=== PATIENT | female | born 1945 | race Caucasian/White ===

== ENCOUNTER → 2017-09-08 | Outpatient (CLI) | payer MEDICARE, BC | LOC: COL.LAB 12:56 | DX: Z01.812 Encounter for preprocedural laboratory examination (principal) ==

== ENCOUNTER 2019-04-17 06:18 | Observation (INO) | payer MEDICARE, BC ==
[~2019-04-17] VITALS: Ht 165.1 cm; Wt 80.3 kg
[2019-04-17] VITALS (11 sets, daily range): BP systolic 131–162; BP diastolic 65–81; PULSE 55–89; TEMP 97–97.6
[2019-04-17] MEDS ORDERED: TYLENOL 500MG500 MG PO (08:59)
[2019-04-17] MEDS ORDERED: ASPIRIN 81M81 MG/TA2 PO (09:00)
[2019-04-17] MEDS ORDERED: VITAMIN C500 MG PO (09:00)
[2019-04-17] MEDS ORDERED: LIPITOR20 MG PO (09:01)
[2019-04-17] MEDS ORDERED: ZYRTEC 10MG10 MG PO (09:02)
[2019-04-17] MEDS ORDERED: VITAMIND3 5000 PO (09:07)
[2019-04-17] MEDS ORDERED: KLONOPIN 1MG1 MG PO (09:08)
[2019-04-17] MEDS ORDERED: HYZAAR 50-12.1 UDTAB PO (09:09)
[2019-04-17] MEDS ORDERED: SINGULAIR 110 MG/TAB PO (09:11)
[2019-04-17] MEDS ORDERED: TOPROL XL 50MG50 MG PO (09:11)
[2019-04-17] MEDS ORDERED: MULTI VITAMINS1 TAB PO (09:12)
[2019-04-17] MEDS ORDERED: MASON NATURAL1200 MG PO (09:13)
[2019-04-17] MEDS ORDERED: PLAVIX 75MG TAB75 MG PO (09:14)
[2019-04-17] MEDS ORDERED: TURMERIC500 MG PO (09:15)
[2019-04-17] MEDS ORDERED: VOLTAREN 75 DR75 MG PO (09:16)
[2019-04-17] MEDS ORDERED: PEPCID40 MG PO (09:18)
[2019-04-17] MEDS ORDERED: FLONASEALLERGY NS (09:20)
[2019-04-17] MEDS ORDERED: FOLIC ACID0.8 MG PO (09:21)
[2019-04-17] MEDS ORDERED: GLUCOSAMINE & C1 CA2 PO (09:22)
[2019-04-17] MEDS ORDERED: SYNTHROID0.125 MG/T PO (09:23)
[2019-04-17] MEDS ORDERED: TIROSINT125 MC1 PO (09:24)
--- NOTE | 2019-04-17 12:40 | NUR ---
PATIENT IS ORIENTED BUT VERY DROWSY. PATIENT FALLS BACK TO SLEEP WHEN NURSING IS TALKING TO PATIENT. ABDOMINAL LAP SITES X5 CD&I WITH SWIFTSET. BOWL SOUNDS PRESENT. NO C/O N/V. IV FLUIDS INFUSING VIA PUMP INTO RIGHT FORARM. LIQUIDS AT BEDSIDE. [place] TO DEPENDENT DRAINAGE WITH MOD AMOUNTS OF CLEAR YELLOW URINE NOTED. HEAD TO TOE ASSESSMENT WNL. AT BEDSIDE. CALL LIGHT IN REACH
--- NOTE | 2019-04-17 20:00 | NUR ---
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 Assessment complete. VS stable. Five LAP sites-edges well approximated-casillas set. Denies pain. Up to ambulate in [place] at this time. TOlerated wel-ambulated approx 150 feet. [place] with clear yellow urine. Denies questions or concerns. Call light within reach. Will monitor.
[2019-04-18 00:40] VITALS: BP 109/73; PULSE 78; TEMP 98.3
[2019-04-18 04:59] VITALS: BP 118/57; PULSE 65; TEMP 98
[2019-04-18 08:11] VITALS: BP 130/75; PULSE 84; TEMP 97.8
--- NOTE | 2019-04-18 09:19 | NUR ---
Patient sitting up in chair, eating breakfast. denies nausea. She also denies pain. Dr. Fonseca rounded this am. Orders obtained. Margie BLANCHARD, jeannette in [facility] [place] [facility] for I&O. Int to R.wrist. Abdomen soft, bowels audible. Robotic lap site edges well approximated. Will monitor
--- NOTE | 2019-04-18 10:44 | NUR ---
Initial visit; Patient thanked Pneumatic Tube Repairer for offering spiritual care; listening to patient speak of personal and family matters. She and Pneumatic Tube Repairer also spoke of the need to have a DNR status in place if we choose this direction. A DNR alleviates issues within the family when decisions need to be made concerning their loved one's care.
--- NOTE | 2019-04-18 10:55 | NUR ---
Patient up ambulated the halls with signficant other. she reports voiding, but missing hat. Iv dc per her request, she is wanting to get dressed for discharge. Once she voids, i will call for orders
[2019-04-18 12:00] VITALS: BP 121/81; PULSE 69; TEMP 98
--- NOTE | 2019-04-18 12:36 | NUR ---
notified of patient readiness to discharge. Orders obtained. Patient given all discharge teaching. Script for sennkot sent with patient. We reviewed home med list & last dose taken, patient aware to not start plavix until tmrw. She is aware of follow up appt. We reviewed activity & diet guidelines & discused incision care & signs & symptoms of when to call the doctor. Patient ambulated out with all belongings, her spouse taking her home. deny questions of concerns.
== END 2019-04-18 12:40 | disposition home or self-care (01) ==
LOC: SDCO 06:18 → SURG 10:26
PROVIDERS: ADMIT Urology
DX: N99.3 Prolapse of vaginal vault after hysterectomy (principal); N81.11 Cystocele, midline; Z85.850 Personal history of malignant neoplasm of thyroid; Z85.89 Personal history of malignant neoplasm of other organs and systems; I73.00 Raynaud's syndrome without gangrene; G47.33 Obstructive sleep apnea (adult) (pediatric); J45.909 Unspecified asthma, uncomplicated; I25.2 Old myocardial infarction; I11.0 Hypertensive heart disease with heart failure; I50.9 Heart failure, unspecified; Z85.828 Personal history of other malignant neoplasm of skin; R20.2 Paresthesia of skin; M79.7 Fibromyalgia; M19.90 Unspecified osteoarthritis, unspecified site; K21.9 Gastro-esophageal reflux disease without esophagitis; Z95.5 Presence of coronary angioplasty implant and graft; Z96.653 Presence of artificial knee joint, bilateral; Z90.710 Acquired absence of both cervix and uterus; Z96.5 Presence of tooth-root and mandibular implants; Z90.49 Acquired absence of other specified parts of digestive tract; Z96.641 Presence of right artificial hip joint; Z79.899 Other long term (current) drug therapy; Z79.82 Long term (current) use of aspirin
CPT/HCPCS: A4314; A9284; C1781; G0378; G0379; J0690; J1100; J1885; J2250; J2370; J2405; J2704; J7050; J7120